=== PATIENT | male | born 1990 | race Caucasian/White ===

== ENCOUNTER 2016-07-27 11:33 | Day surgery (SDC) | payer OTHER ==
[~2016-07-27 11:33] MED LIST: ATIVAN1 M1 PO; AZASAN100 MG; CELEXA20 M2 PO; ENTOCORT EC3 M1 PO; FLAGYL500 MG PO; LEVAQUIN750 MG PO; LEXAPRO10 M1 PO; LIALDA1.2 G PO; PREDNISONE20 MG PO; PROBIOTIC1 EA10 PO; TYLENOL325 M1 PO; VITAMIN B-12250 MC2 PO; VITAMIN D1000 UNI3 PO; XANAX1 M1 PO
== END 2016-07-27 16:30 ==
LOC: SHSB 11:33 → PACU 15:03 → SHSB 15:30
PROC: 09BR4ZZ Excision of Left Maxillary Sinus, Percutaneous Endoscopic Approach (ICD-10-PCS; principal; 2016-07-27)
PROC: 09BT4ZZ Excision of Left Frontal Sinus, Percutaneous Endoscopic Approach (ICD-10-PCS; 2016-07-27)
PROC: 09BS4ZZ Excision of Right Frontal Sinus, Percutaneous Endoscopic Approach (ICD-10-PCS; 2016-07-27)
PROC: 09BQ4ZZ Excision of Right Maxillary Sinus, Percutaneous Endoscopic Approach (ICD-10-PCS; 2016-07-27)
PROC: 09CM0ZZ Extirpation of Matter from Nasal Septum, Open Approach (ICD-10-PCS; 2016-07-27)
DX: J34.2 Deviated nasal septum (principal); J32.0 Chronic maxillary sinusitis; J32.1 Chronic frontal sinusitis; Z98.890 Other specified postprocedural states; M19.90 Unspecified osteoarthritis, unspecified site; F41.9 Anxiety disorder, unspecified; F32.9 Major depressive disorder, single episode, unspecified; Z87.891 Personal history of nicotine dependence; Z88.8 Allergy status to other drugs, medicaments and biological substances; Z79.899 Other long term (current) drug therapy
CPT/HCPCS: C1726